=== PATIENT | male | born 1955 | race Caucasian/White ===

== ENCOUNTER 2020-05-31 07:45 | Outpatient (REF) | payer MEDICARE, OTHER, SELFPAY ==
[2020-05-31 08:38] LABS: MANUAL DIFF FLAG NO
[2020-05-31 08:45] LABS: Basophils Percent Auto 0.5 % (0-2); Eosinophils Absolute Auto 0.1 X10*3/uL (0.0-0.4); Eosinophils Percent Auto 0.8 % (0-4); Hematocrit 48.2 % (42-52); Hemoglobin 15.8 g/dl (14.0-18.0); Imm Gran Abs Auto 0.01 X10*3/uL (0.00-0.03); Imm Gran Pct Auto 0.2 % (0.0-0.4); Lymphocytes Absolute Auto 1.2 X10*3/uL (1.2-4.9); Lymphocytes Percent Auto 18.6 % (20-40); Mean Corpuscular HGB Conc 32.8 g/dl (31.0-36.0); Mean Corpuscular Hemoglobin 28.8 pg (27.0-33.0); Mean Corpuscular Volume 87.8 fL (80-98); Mean Platelet Volume 10.5 fL (9.4-12.4); Monocytes Absolute Auto 0.6 X10*3/uL (0.1-1.2); Neutrophils Absolute Auto 4.7 X10*3/uL (2.0-8.3); Neutrophils Percent Auto 70.9 % (45-73); Platelet Count 180 X10*3/uL (160-400); Red Blood Count 5.49 X10*6/uL (4.60-5.80); Red Cell Distribution Width 12.8 % (11.0-16.0); White Blood Count 6.6 X10*3/uL (4.8-10.8)
[2020-05-31 09:16] LABS: Alanine Aminotransferase 25 U/L (0-40); Albumin Level 4.4 g/dL (3.5-5.0); Alkaline Phosphatase 65 U/L (39-117); Anion Gap 11 (12-20); Aspartate Amino Transferase 22 U/L (5-37); Bilirubin Total 1.3 mg/dL (0.0-1.0); Blood Urea Nitrogen 20 mg/dL (9-16); Calcium 8.8 mg/dL (8.4-10.2); Carbon Dioxide 29 mmol/L (22-29); Chloride 103 mmol/L (96-108); Cholesterol 172 mg/dL; Estimated Glomerular Filt Rate > 60; Glucose Random 104 mg/dL (60-115); HDL Cholesterol 53 mg/dL; LDL Cholesterol Calculated 93 mg/dl; Potassium 4.4 mmol/L (3.3-5.1); Sodium 139 mmol/L (135-145); Total Protein 6.7 g/dL (6.5-8.0); Triglycerides 132 mg/dL
[2020-05-31 09:24] LABS: Prostate Specific Antigen 0.53 ng/mL (<0.05-4.0)
== END 2020-05-31 07:46 | disposition home or self-care (01) ==
LOC: HO.LAB 07:45
PROVIDERS: PCP Internal Medicine; Visit Provider Internal Medicine
DX: I10 Essential (primary) hypertension (principal); Z12.5 Encounter for screening for malignant neoplasm of prostate
CPT/HCPCS: 36415; 80053; 80061; 84153; 85025

== ENCOUNTER → 2020-08-19 08:49 | Outpatient (BNVA) | payer MEDICARE, OTHER, SELFPAY | PROVIDERS: PCP Internal Medicine; Visit Provider Orthopaedic Surgery | DX: M65.321 Trigger finger, right index finger (principal); M65.331 Trigger finger, right middle finger; M65.341 Trigger finger, right ring finger; M65.351 Trigger finger, right little finger; M65.322 Trigger finger, left index finger; M65.332 Trigger finger, left middle finger; M65.342 Trigger finger, left ring finger; M65.352 Trigger finger, left little finger | CPT/HCPCS: 20550; 99202; J1100 ==

== ENCOUNTER → 2020-10-12 10:44 | Outpatient (BNVA) | payer MEDICARE, OTHER, SELFPAY | PROVIDERS: Visit Provider Orthopaedic Surgery | DX: M65.352 Trigger finger, left little finger (principal); M65.342 Trigger finger, left ring finger; M65.332 Trigger finger, left middle finger; M65.322 Trigger finger, left index finger; M65.351 Trigger finger, right little finger; M65.341 Trigger finger, right ring finger; M65.331 Trigger finger, right middle finger; M65.321 Trigger finger, right index finger | CPT/HCPCS: 99212 ==

== ENCOUNTER 2020-11-10 10:23 | Day surgery (SDC) | payer MEDICARE, OTHER, SELFPAY ==
--- NOTE | 2020-11-10 10:13 | W.PM.OPN ---
Operative Note Operative Note Date of Service: 11/10/20 Narrative: Operative Note Preop diagnosis: 1. Left middle finger Trigger finger 2. Left ring finger trigger finger Postop diagnosis: Same Procedure: 1. Left middle finger A1 anand release 2. Left ring finger A1 anand release Surgeon: Sara Seals MD Anesthesia: local block using 1% lidocaine with epinephrine Findings: No locking or catching after A1 anand release EBL: Less than 5 mL Tourniquet time: None Specimens: None Complications: None Disposition: Brought to recovery room in stable condition Plan: Follow-up for 7-10 days for wound check and suture removal Indications: The patient is 64 years old, with left middle finger and left ring finger trigger fingers that have been unresponsive to nonoperative management. The risks and benefits of operative treatment including but not limited to risk of damage to blood vessels, nerves, tendons, infection, persistent pain, persistent symptoms, recurrence or possible need for additional surgery were discussed with the patient and the patient wishes to proceed with surgery. Procedure: Once consent was obtained a local block was performed in the preop area using a combination of 1% lidocaine with epinephrine. The patient was then brought back to the operating suite and placed on the operative table in supine position. A tourniquet was applied to the proximal aspect of the left upper extremity and the limb was prepped and draped in a standard surgical fashion. Once assured that we had a good block, a 1.5 cm oblique incision was made centered over the A1 anand of the left middle finger . The incision was made through the skin to the subcutaneous tissues using a #15 blade. Careful dissection was made down to the level of the A1 anand using tenotomy scissors, with care being taken to protect the nearby neurovascular structures. A longitudinal incision was made in the A1 anand 1st using a #15 blade, then using tenotomy scissors under direct visualization. The A1 anand was noted to be thickened. Following our A1 anand release, we no longer saw any locking or catching of the digit with flexion and extension. Once assured that we had a good block, a 1.5 cm oblique incision was made centered over the A1 anand of the left ring finger . The incision was made through the skin to the subcutaneous tissues using a #15 blade. Careful dissection was made down to the level of the A1 anand using tenotomy scissors, with care being taken to protect the nearby neurovascular structures. A longitudinal incision was made in the A1 anand 1st using a #15 blade, then using tenotomy scissors under direct visualization. The A1 anand was noted to be thickened. Following our A1 anand release, we no longer saw any locking or catching of the digit with flexion and extension. Once satisfied with our A1 anand release the wound was copiously irrigated with normal saline and hemostasis was obtained with a brief period of local pressure. The skin edges were reapproximated with some 5.0 nylon suture material and a sterile dressing was applied. The patient appears to have tolerated the procedure well and with no complications. All digits were well vascularized at the conclusion of the case.
[2020-11-10 10:42] VITALS: BP 136/76; PULSE 70; RESP 16; TEMP 36.7; O2SAT 97; BMI 29.1
--- NOTE | 2020-11-10 11:48 | MHC.SHP ---
Pre-Procedural Eval Section A Date of Service: 11/10/20 The patient is an INPATIENT: No Changes since office visit: No Cold of Flu in the past 2 weeks, No New Medical Problems, No Changes in Medication and No Patient answered all questions The History & Physical has been completed within 30 days and I have reviewed it.: Yes Section B Chief Complaint: trigger fingers Allergies: Allergies Allergy/AdvReac Type Severity Reaction Status Date / Time No Known Allergies Allergy Verified 08/19/20 08:59 Plan I have reviewed the history and physical and performed a pertinent physical examination on my patient. No changes have occurred unless specified.
[2020-11-10 12:45] VITALS: BP 117/67; PULSE 70; RESP 18; TEMP 36.8; O2SAT 98
== END 2020-11-10 13:05 | disposition home or self-care (01) ==
PROVIDERS: PCP Internal Medicine; Visit Provider Orthopaedic Surgery
PROC: (CPT 26055; principal; 2020-11-10 11:10)
DX: M65.332 Trigger finger, left middle finger (principal); M65.342 Trigger finger, left ring finger; I10 Essential (primary) hypertension
CPT/HCPCS: 26055 ×2

== ENCOUNTER → 2020-11-23 08:24 | Outpatient (BNVA) | payer MEDICARE, OTHER, SELFPAY | PROVIDERS: PCP Internal Medicine; Visit Provider Orthopaedic Surgery | DX: Z48.89 Encounter for other specified surgical aftercare (principal); Z87.39 Personal history of other diseases of the musculoskeletal system and connective tissue | CPT/HCPCS: 99212 ==

== ENCOUNTER 2021-12-12 07:25 | Outpatient (REF) | payer MEDICARE, OTHER, SELFPAY ==
[2021-12-12 07:30] LABS: MANUAL DIFF FLAG NO
[2021-12-12 07:50] LABS: Basophils Absolute Auto 0.1 X10*3/uL (0.0-0.2); Basophils Percent Auto 0.8 % (0-2); Eosinophils Absolute Auto 0.1 X10*3/uL (0.0-0.4); Eosinophils Percent Auto 1.1 % (0-4); Hematocrit 47.6 % (42.0-52.0); Hemoglobin 15.6 g/dl (14.0-18.0); Imm Gran Abs Auto 0.02 X10*3/uL (0.00-0.03); Imm Gran Pct Auto 0.3 % (0.0-0.4); Lymphocytes Percent Auto 30.8 % (20-40); Mean Corpuscular HGB Conc 32.8 g/dl (31.0-36.0); Mean Corpuscular Volume 85.5 fL (80.0-98.0); Mean Platelet Volume 9.7 fL (9.4-12.4); Monocytes Absolute Auto 0.6 X10*3/uL (0.1-1.2); Monocytes Percent Auto 8.5 % (2-11); Neutrophils Absolute Auto 3.8 x10*3/uL (2.0-8.3); Neutrophils Percent Auto 58.5 % (45-73); Platelet Count 193 X10*3/uL (160-400); Red Blood Count 5.57 X10*6/uL (4.60-5.80); White Blood Count 6.6 X10*3/uL (4.8-10.8)
[2021-12-12 08:13] LABS: Alanine Aminotransferase 27 U/L (0-40); Albumin Level 4.4 g/dL (3.5-5.0); Alkaline Phosphatase 67 U/L (39-117); Anion Gap 16 (12-20); Aspartate Amino Transferase 28 U/L (5-37); Bilirubin Total 0.9 mg/dL (0.0-1.0); Blood Urea Nitrogen 17 mg/dL (9-16); Calcium 8.9 mg/dL (8.4-10.2); Carbon Dioxide 27 mmol/L (22-29); Chloride 103 mmol/L (96-108); Cholesterol 166 mg/dL; Estimated Glomerular Filt Rate > 60; Glucose Random 115 mg/dL (60-115); HDL Cholesterol 53 mg/dL; LDL Cholesterol Calculated 98 mg/dl; Potassium 4.5 mmol/L (3.3-5.1); Sodium 141 mmol/L (135-145); Total Protein 6.7 g/dL (6.5-8.0); Triglycerides 79 mg/dL
[2021-12-12 08:34] LABS: Prostate Specific Antigen 0.93 ng/mL (<0.05-4.0); Thyroid Stimulating Hormone 1.87 uIU/mL (0.32-4.0)
== END 2021-12-12 07:26 | disposition home or self-care (01) ==
LOC: HO.LAB 07:25
PROVIDERS: PCP Internal Medicine; Visit Provider Internal Medicine
DX: Z12.5 Encounter for screening for malignant neoplasm of prostate (principal); I10 Essential (primary) hypertension; E78.5 Hyperlipidemia, unspecified
CPT/HCPCS: 36415; 80053; 80061; 84153; 84443; 85025

== ENCOUNTER 2022-04-18 12:03 | Outpatient (REF) | payer MEDICARE, OTHER, SELFPAY ==
--- NOTE | 2022-04-18 09:30 | EMG_ITS ---
Please see scanned EMG / Nerve Conduction Report. MTDD
== END 2022-04-18 12:04 | disposition home or self-care (01) ==
LOC: HO.NEURO 12:03
PROVIDERS: PCP Internal Medicine; Visit Provider Internal Medicine
DX: G56.12 Other lesions of median nerve, left upper limb (principal)
CPT/HCPCS: 95885; 95910

== ENCOUNTER 2022-08-07 14:04 | Outpatient (REF) | payer MEDICARE, SELFPAY ==
--- NOTE | ~2022-08-07 | US_ITS ---
EXAMINATION: NONINVASIVE ASSESSMENT OF THE ARTERIES OF BOTH UPPER EXTREMITIES Enrique Young MD CLINICAL INFORMATION: TIA. TECHNIQUE: Duplex Doppler of the upper extremities was performed. Velocity measurements and color flow Doppler imaging were performed in the proximal, mid and distal subclavian arteries, the axillary arteries, the proximal, mid and distal brachial arteries as well as the radial and ulnar arteries. COMPARISON: None available. FINDINGS: RIGHT ARM: Triphasic waveforms are noted throughout. Minimal if any plaque is seen. Velocities in cm per second are as follows: Subclavian proximal: 314 Subclavian mid: 112 Subclavian distal: 137 Axillary artery: 97 Brachial artery proximal: 148 Brachial artery mid: 120 Brachial artery distal: 117 Radial artery mid: 144 Ulnar artery mid: 127 LEFT LEG: Triphasic waveforms are noted throughout. Minimal if any plaque is seen. Velocities in cm per second are as follows: Subclavian proximal: 246 Subclavian mid: 123 Subclavian distal: 118 Axillary artery: 119 Brachial artery proximal: 123 Brachial artery mid: 1.120 Brachial artery distal: 121 Radial artery mid: 97 Ulnar artery and the: 103 US/US arterial duplex UE BI IMPRESSION: No evidence of hemodynamically significant upper extremity arterial disease. There are elevated velocities seen in the very proximal subclavian arteries of questionable significance as significant plaque is noted and normal triphasic flow noted throughout both upper extremities.
--- NOTE | ~2022-08-07 | US_ITS ---
EXAMINATION: US EXTRACRANIAL CAROTID DUPLEX, BILATERAL CLINICAL INFORMATION: Transient ischemic attack. COMPARISON: None available. TECHNIQUE: Real-time ultrasound and Doppler techniques (integrating B-mode 2-D vascular images, Doppler spectral analysis and color-flow Doppler imaging) were utilized to interrogate the extracranial carotid arteries, the vertebral arteries and proximal subclavian arteries bilaterally. The degree of stenosis is determined by criteria similar to NASCET. FINDINGS: Right Side: 1. There is no atherosclerotic plaque seen in the bifurcation/proximal ICA region. 2. The common carotid artery PSV proximally is 139 cm/s and distally 175 cm/s. 3. The proximal internal carotid artery velocities are 91 cm/s systolic and 14 cm/s diastolic. 4. The proximal external carotid artery PSV is 184 cm/s. 5. The vertebral artery shows antegrade flow. 6. The subclavian artery waveforms are normal. Left Side: 1. There is no atherosclerotic plaque seen in the bifurcation/proximal ICA region. 2. The common carotid artery PSV proximally is 205 cm/s and distally 142 cm/s. 3. The proximal internal carotid artery velocities are 113 cm/s systolic and 14 cm/s diastolic. 4. The proximal external carotid artery PSV is 187 cm/s. 5. The vertebral artery shows antegrade flow. 6. The subclavian artery waveforms are normal. US/US carotid duplex BI IMPRESSION: 1. RIGHT: Normal right internal carotid artery without atherosclerotic plaque or hemodynamically significant stenosis. 2. LEFT: Normal left internal carotid artery without atherosclerotic plaque or hemodynamically significant stenosis.
== END 2022-08-07 14:05 | disposition home or self-care (01) ==
LOC: HO.US 14:04
PROVIDERS: Visit Provider Physician Assistant
DX: G45.8 Other transient cerebral ischemic attacks and related syndromes (principal)
CPT/HCPCS: 93880; 93930

== ENCOUNTER 2024-04-21 12:26 | Outpatient (REF) | payer MEDICARE, SELFPAY ==
--- NOTE | ~2024-04-21 | XR_ITS ---
CLINICAL HISTORY: COUGH 2 view chest x-ray Comparison: None Findings: No consolidation or effusion. Bibasilar atelectasis. No pneumothorax. Cardiac silhouette and mediastinal contours within normal limits. Degenerative changes include imaged shoulders, spine, and AC joints. Tendon anchors in bilateral humerus heads. IMPRESSION: No consolidation. This document has been electronically signed by: Vladimir Neville MD on 04/21/2024 23:12:26
--- OUTSIDE RECORDS SUMMARY | 2024-04-21 15:09 | XMS_ITS | Data Portability ---
Author Organization [facility] Service Address [address] [place] [address] Assessment Encounter Date Assessment Date Assessment LastModified by Organization Details LastModified Time 06/27/2022 06/27/2022 [id number] [place] [id number] (QUALITY ASSURANCE SUPERVISOR FINAL) MDM MODERATE MUST MEET 2 OUT OF 3 ELEMENTS: PROBLEMS, DATA OR RISK ELEMENT 1: PROBLEMS ADDRESSED 1 OR MORE CHRONIC ILLNESS WITH EXACERBATION OR 2 OR MORE STABLE CHRONIC ILLNESSES OR 1 UNDIAGNOSED NEW PROBLEM OR 1 ACUTE ILLNESS W/SYMPTOMS OR 1 ACUTE COMPLICATED INJURY ELEMENT 2: DATA MUST MEET 1 OF 3 CATEGORIES CATEGORY 1: REVIEW OF PRIOR EXTERNAL NOTES, REVIEW OF RESULTS, ORDERING OF EACH TEST, ASSESSMENT REQUIRING INDEPENDENT HISTORIAN OR CATEGORY 2: INDEPENDENT INTERPRETATION OF TESTS BY ANOTHER PHYSICIAN OR SPECIALIST OR CATEGORY 3: DISCUSSION OF MGT OR TEST INTERPRETATION W/EXTERNAL PHYSICIAN OR SPECIALIST ELEMENT 3: RISK RISK OF COMPLICATIONS AND/OR MORBIDITY OR MORTALITY OF PATIENT MANAGEMENT PROVIDER MUST THOROUGHLY DOCUMENT EACH ELEMENT THAT IS COVERED Not available 06/27/2022 11:09:14 01/16/2023 01/16/2023 [id number] [place] [id number] (QUALITY ASSURANCE SUPERVISOR FINAL) : MDM LOW MUST MEET 2 OF 3 ELEMENTS: PROBLEMS, DATA OR RISK ELEMENT 1: PROBLEMS ADDRESSED (LOW): 2 OR MORE SELF-LIMITED OR MINOR PROBLEMS OR 1 STABLE CHRONIC ILLNESS OR 1 ACUTE UNCOMPLICATED ILLNESS OR INJURY ELEMENT 2: DATA TO BE REVISED AND ANALYZED (LOW) MUST MEET 1 OF 2 CATEGORIES: CATEGORY 1. REVIEW OF PRIOR EXTERNAL NOTES/RESULTS, ORDERING OF TEST(S) CATEGORY 2. ASSESSMENT REQUIRING INDEPENDENT HISTORIAN(S) INCLUDE WHO THE HISTORIAN IS AND RELATION TO PT AND WHY PT IS UNABLE TO GIVE COMPLETE HISTORY ELEMENT 3: RISK (LOW) RISK OF COMPLICATIONS AND/OR MORBIDITY OR MORTALITY OF PATIENT MANAGEMENT PROVIDER MUST THOROUGHLY DOCUMENT ALL OF THE ELEMENTS COVERED Not available 01/16/2023 10:46:55 08/02/2023 08/02/2023 Patient presente d to office today for their Medicare Annual Wellness Visit. Education was provided on healthy nutrition, including a diet rich in fruits and vegetables, minimizing simple carbohydrates, salt, and saturated fats. Encouraged regular cardiovascular exercise such as walking at least 30 minutes daily, 5 times per week. Emphasized preventive health measures and educated pt on fall prevention and community-based lifestyle interventions to help reduce health risks and promote healthy living. Not available 07/31/2023 10:35:59 11/25/2023 11/25/2023 [id number] [place] [id number] (QUALITY ASSURANCE SUPERVISOR FINAL) MDM MODERATE MUST MEET 2 OUT OF 3 ELEMENTS: PROBLEMS, DATA OR RISK ELEMENT 1: PROBLEMS ADDRESSED 1 OR MORE CHRONIC ILLNESS WITH EXACERBATION OR 2 OR MORE STABLE CHRONIC ILLNESSES OR 1 UNDIAGNOSED NEW PROBLEM OR 1 ACUTE ILLNESS W/SYMPTOMS OR 1 ACUTE COMPLICATED INJURY ELEMENT 2: DATA MUST MEET 1 OF 3 CATEGORIES CATEGORY 1: REVIEW OF PRIOR EXTERNAL NOTES, REVIEW OF RESULTS, ORDERING OF EACH TEST, ASSESSMENT REQUIRING INDEPENDENT HISTORIAN OR CATEGORY 2: INDEPENDENT INTERPRETATION OF TESTS BY ANOTHER PHYSICIAN OR SPECIALIST OR CATEGORY 3: DISCUSSION OF MGT OR TEST INTERPRETATION W/EXTERNAL PHYSICIAN OR SPECIALIST ELEMENT 3: RISK RISK OF COMPLICATIONS AND/OR MORBIDITY OR MORTALITY OF PATIENT MANAGEMENT PROVIDER MUST THOROUGHLY DOCUMENT EACH ELEMENT THAT IS COVERED Not available 11/25/2023 14:46:16 Plan of Treatment Reminders Order Date Submit Date Provider Last Modified By Organization Details Last Modified Time Details Appointments MEDICARE ANNUAL WELLNESS 2024 09:15A M DR CEDILLO Not available Not available Not available Lab lipid panel, blood 2023 024 [facility], [address] [place] [address], [id number], 11/19/2023 13:16:12 hemoglobi n, gastroint estinal, stool 2023 024 [facility], [address] [place] [address], [id number], 08/02/2023 13:46:04 CBC w/ auto diff 2023 024 [facility], [address] [place] [address], [id number], 11/19/2023 13:08:04 CMP, serum or plasma 2023 024 [facility], [address] [place] [address], [id number], 11/19/2023 13:26:38 vitamin D, 25-hydrox y, total, serum 2023 024 [facility], [address] [place] [address], [address], 08/02/2023 13:46:04 PSA, serum or plasma 2023 024 [facility], [address] [place] [address], [id number], 11/19/2023 12:38:03 CMP, serum or plasma 2022 023 [facility], [address] [place] [address], [id number], 01/16/2023 10:55:06 PSA, serum or plasma 2022 023 [facility], [address] [place] [address], [id number], 01/16/2023 10:55:06 CBC 2022 023 [facility], [address] [place] [address], [id number], 01/16/2023 10:55:06 lipid panel, blood 2022 023 [facility], [address] [place] [address], [id number], 01/16/2023 10:55:06 Referral orthopedi c surgeon referral - he has not gotten xrays yet as ordered, so will need these done please 2022 023 kei De La Cruz MD, [address], [place], [address], 07/04/2022 08:22:15 Procedures None recorded. Surgeries None recorded. Imaging None recorded. Medication Orders azithromy mandy 250 mg tablet 2023 024 [facility]/Pharmacy #2024, [address] [place], [address], 02/14/2024 14:20:28 prednison e 10 mg tablet [address]/Pharmacy #2024, [address] [place], [address], 08/02/2023 13:40:18 lisinopri l 2.5 mg tablet 2022 023 [facility] [address] [place], [address], 01/16/2023 10:48:57 Patient TargetsNo targets recorded. Patient Instructions Encounter Date Encounter Id Patient Instructions Last Modified By Organization Details Last Modified Time 08/02/2023 [id number] Discussed and explained advance directives such as standard forms to the {{patient caregiv er patient and caregiver}}. Face to face discussion lasted for a duration of ___ minutes. Not available 07/31/2023 10:35:59 Reason for Referral Orthopedic Surgeon Referral for Pain of left shoulder joint he has not gotten xrays yet as ordered, so will need these done please Referring Physician: Saleem Cedillo, Internal Medicine, Encounter Date: 06/27/2022 Results Created Date Observation Date Name Description Value Unit Range Abnormal Flag Note LastModifiedBy Organization Detail LastModifiedTime 08/09/1908/07/2022 , trinity newberry id arter y No observ ation record ed. [facility] (Medical Records) [address] [place], [address], 01/16/2023 10:40:46 06/23/08/07/2022 US, duple x, arter ial, upper extre mity, compl ete No observ ation record ed. [facility] (Medical Records) [address] [place] [address], [place], [address], 01/16/2023 10:40:46 Result Notes None recorded. 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 Not Available [facility] 3 17:05:03 Median neuropath y 737343056 Active 2021 Not Available [facility] 3 17:05:04 Paresthes ia of hand 019746661 Active 2022 Not Available [facility] 3 17:05:03 Pain of left shoulder joint 073237630021 79551 Active 2022 Not Available [facility] 3 17:05:03 Subclavia n steal syndrome 03585097 Active 2022 Not Available [facility] 3 17:05:03 Acute otitis media 9289495 Active 2022 Not Available [facility] 3 17:05:03 Acute otitis media 2158366 Active 2022 Not Available [facility] 3 17:05:03 Hemorrhag ic diarrhea 68640779 Active 2023 Saleem Cedillo DO [address] [place] [address], [phone], [facility] 4 14:17:55 Cough 14180317 Active 2024 Saleem Cedillo DO [address] [place] [address], [phone], [facility] 5 10:53:25 Essential hypertens ion 60790189 Active 2017 Not Available [facility] 3 17:05:04 History of male erectile disorder 490226538 Active 2017 Not Available [facility] 3 17:05:04 Polyp of colon 34656939 Active 2017 Not Available [facility] 3 17:05:04 Hyperlipi carrieia 98284679 Active 2017 Not Available [facility] 3 17:05:04 Cervical radiculop athy 09375475 Active 2017 Not Available [facility] 3 17:05:04 Hearing loss 84599434 Active 2017 Not Available [facility] 3 17:05:03 Problem Notes None recorded. Procedures Surgical History Date Name Laterality Status Provider Name and Address Organization Details Recorded Time 12/28/19 15 total knee replacement completed [facility] 11/04/2018 14:27:51 02/25/19 10 re-release of carpal tunnel completed [facility] 11/04/2018 14:26:26 Unlisted procedure shoulder completed [facility] 11/04/2018 14:26:58 arthroscopic debridement of knee joint completed [facility] 11/04/2018 14:29:07 Imaging Results Imaging Date Name Status LastModified by Organiz ation Details LastModified Time 08/07/2022 US, duplex, carotid artery completed [address] (Medical Records) [address] [place] [address], [address], 01/16/2023 10:40:46 08/07/2022 US, duplex, arterial, upper extremity, complete completed [address] (Medical Records) [address] [place], [address], 01/16/2023 10:40:46 Procedure Notes None recorded. Medical Equipment None Reported. Allergies No known drug allergies Medications Name Sig Start Date Stop Date Status Note LastModified by Organization Details LastModified Time amoxicillin 500 mg capsule TAKE 1 CAPSULE BY MOUTH THREE TIMES A DAY FOR 10 DAYS active Not Available Not Available No t Available neomycin-po lymyxin-hyd rocort 3.5 mg/mL-10,00 0 unit/mL-1 % ear solution INSTILL 4 DROPS INTO AFFECTED EAR(S) 3 TIMES A DAY 08/01 completed Not Available Not Available Not Available prednisone 10 mg tablet TAKE 4TABS BY MOUTH DAILY X 3DAYS, THEN 3TABS DAILY X 3DAYS, THEN 2TABS X 3DAYS, THEN 1TAB X 3DAYS active Not Available Not Available No t Available azithromyci n 250 mg tablet TAKE 2 TABLETS (500 MG) BY ORAL ROUTE ONCE DAILY FOR 1 DAY THEN 1 TABLET (250 MG) BY ORAL ROUTE ONCE DAILY FOR 4 DAYS 2024 active Not Available Not Available Not Avai lable hydrocodone 5 mg-acetamin ophen 325 mg tablet 12/21 completed Not Available Not Available Not Available lisinopril 20 mg tablet TAKE 1 TABLET BY MOUTH EVERY DAY 12/21 completed Not Available Not Available Not Available Viagra 50 mg tablet Take 1 tablet every day by oral route as needed. 12/21 completed Not Available Not Available Not Available acetaminoph en 300 mg-codeine 30 mg tablet TAKE 1 TABLET BY MOUTH EVERY 4-6 HOURS NEEDED active Not Available Not Available No t Available ciprofloxac in 500 mg tablet TAKE 1 TABLET BY MOUTH EVERY 12 HOURS FOR 7 DAYS active Not Available Not Available No t Available sildenafil 100 mg tablet Take 1 tablet every day by oral route for 180 days. 2019 active Not Available Not Available Not Avai lable simvastatin 20 mg tablet TAKE 1 TABLET BY MOUTH EVERY DAY active Not Available Not Available No t Available lisinopril 10 mg tablet TAKE 1 TABLET BY MOUTH EVERY DAY 08/01 completed Not Available Not Available Not Available fluticasone propionate 50 mcg/actuati on nasal spray,suspe nsion Coleman 1 spray every day by intranasa l route for 30 days. active Not Available Not Available No t Available lisinopril 2.5 mg tablet TAKE 1 TABLET BY MOUTH EVERY DAY active Not Available Not Available No t Available amoxicillin 875 mg-potassiu m clavulanate 125 mg tablet TAKE 1 TABLET BY MOUTH EVERY 12 HOURS FOR 10 DAYS 08/01 completed Not Available Not Available Not Available GaviLyte-G 236 gram-22.74 gram-6.74 gram-5.86 gram oral solution TAKE 8 OUNCE BY MOUTH DIRECTED 04/27 completed Not Available Not Available Not Available Stendra 100 mg tablet Take 1 tablet by oral route as needed for 30 days. 2023 active Not Available Not Available Not Avai lable Vitals Date Recorded Body height Body mass index (BMI) Body weight Heart rate Oxygen saturation Oxygen saturation in Arterial blood by Pulse oximetry Systolic blood pressure Diastolic blood pressure Provider Name and Address Organization Details Last Updated DateTime 3 173.99 cm 32.2 kg/m2 97907.3 6 g 71 /min 98 % 98 % 114 mm[Hg] 70 mm[Hg] Bernarda Foote [facility] 3 10:38:29 Date Recorded Body height Provider Name an d Address Organization Details Last Updated DateTime 01/16/2023 173.99 cm Sal Cedillo [facility] 01/16/2023 08:22:06 Date Recorded Body height Body mass index (BMI) Body weight Heart rate Oxygen saturation Oxygen saturation in Arterial blood by Pulse oximetry Systolic blood pressure Diastolic blood pressure Provider Name and Address Organization Details Last Updated DateTime 4 173.99 cm 31.2 kg/m2 01903.9 3 g 78 /min 98 % 98 % 126 mm[Hg] 70 mm[Hg] Ame Guardado [facility] 4 13:33:04 Date Recorded Body height Body mass index (BMI) Body weight Heart rate Oxygen saturation Oxygen saturation in Arterial blood by Pulse oximetry Systolic blood pressure Diastolic blood pressure Provider Name and Address Organization Details Last Updated DateTime 4 173.99 cm 32.1 kg/m2 65427.7 7 g 77 /min 96 % 96 % 138 mm[Hg] 72 mm[Hg] Bernarda Foote [facility] 4 14:21:25 Date Recorded Body height Body mass index (BMI) Body weight Heart rate Oxygen saturation Oxygen saturation in Arterial blood by Pulse oximetry Systolic blood pressure Diastolic blood pressure Provider Name and Address Organization Details Last Updated DateTime 4 173.99 cm 31.9 kg/m2 37463.1 7 g 74 /min 99 % 99 % 124 mm[Hg] 78 mm[Hg] Shekhar Riley [facility] 4 13:58:09 Social History Question Answer Notes LastModified by Organizat ion Details LastModified Time Tobacco Smoking Status Never Smoker Not Available [facility] 12/29/2019 03:36:23 What Was The Date Of Your Most Recent Tobacco Screening? 02/14/2024 [email or web address] Information not available 02/14/2024 Do You Or Have You Ever Used Any Other Forms Of Tobacco Or Nicotine? No Information not available 12/22/2021 Sex: Unknown Functional Status None recorded. Mental Status None recorded. Family History Nothing Reported. Medical History No medical history recorded. Immunizations Vaccine Type Date Status Note Provider Nam e and Address Organization Details Recorded Time COVID-19, mRNA, LNP-S, PF, 30 mcg/0.3 mL dose 1 completed Saleem Cedillo DO [address] [place] [address], [phone], [facility] 12/21/2020 09:14:35 COVID-19, mRNA, LNP-S, PF, 30 mcg/0.3 mL dose 1 completed Saleem Cedillo DO [address] [place] [address], [phone], [facility] 12/21/2020 09:14:41 COVID-19, mRNA, LNP-S, PF, 30 mcg/0.3 mL dose 1 completed Saleem Cedillo DO [address] [place] [address], [phone], [facility] 12/21/2020 09:14:47 Influenza, split virus, quadrivalent, preservative 1 completed Saleem Cedillo DO [address] [place] [address], [phone], [facility] 12/21/2020 09:15:06 Influenza, split virus, quadrivalent, preservative 8 [facility] 11/27/2019 10:37:50 Pneumococcal conjugate PCV 13 0 completed Saleem Cedillo DO [address] [place] [address], [phone], [facility] 06/23/2021 09:03:58 COVID-19, mRNA, LNP-S, PF, 100 mcg/0.5mL dose or 50 mcg/0.25mL dose 2 [facility] 08:12:30 Influenza, split virus, quadrivalent, preservative 2 [facility] 12/15/2021 10:31:33 COVID-19, mRNA, LNP-S, PF, 100 mcg/0.5mL dose or 50 mcg/0.25mL dose 2 [facility] 12/15/2021 10:31:44 SARS-COV-2 (COVID-19) vaccine, UNSPECIFIED 3 [facility] 11/30/2022 08:43:03 influenza, unspecified formulation 3 completed Lydia jackson [facility] 11/30/2022 08:43:19 Tdap 9 [facility] 11/27/2019 10:37:50 Influenza, split virus, quadrivalent, preservative 9 [facility]/27/2019 10:37:50 Past Encounters Encounter ID Performer Location Encounter Start Date Encounter Closed Date Diagnosis/Indication Diagnosis SNOMED-CT Code Diagnosis ICD10 Code Diagnosis Note [id number] Adeline Cortes NP, [facility] [address],[place]ina Malin [facility] [place] [place] [address] 07/01/2017 08:59:05 07/01/2017 15:09:07 Essential hypertension 33485601 I10 continue lisinopril , alt. 20 mg with 10 mg check labs in house today Carpal katina reji syndrome 17861524 G56.03 [id number] Adeline Cortes NP, [facility] [address],[place] [address] 11/01/2017 08:47:50 11/01/2017 09:18:50 Hyperlipidemia 26870026 E78.2 Essential hypertension 53668771 I10 continue lisinopril , alt. 20 mg with 10 mg Triggering of digit 2399 75073 M65.30 improved [id number] Adeline Cortes NP, [facility] [address] [facility] [address],[place] [address] 05/07/2018 09:01:19 05/07/2018 09:43:06 Hyperlipidemia 92706204 E78.2 Essential hypertension 68699562 I10 continue lisinopril , alt. 20 mg with 10 mg Screening procedure 2012 5006 Z13.9 Active or passive immunization 374515119 Z23 [id number] Lizbet [facility] [address],[place] [address] 11/05/2018 10:19:14 11/05/2018 11:26:10 Hyperlipidemia 10377613 E78.2 well controlled Essential hypertension 41553343 I10 well controlled Adult heal th examination 303249526 Z00.00 hcp complete Body mass index 30+ - obesity 658264054 Z68.31 [id number] May [facility] [address] [facility] [address],[place] [address] 05/05/2019 09:21:00 05/05/2019 10:06:06 Essential hypertension 42883057 I10 well controlled Hyperlipidemia 03929886 E78.2 well controlled Body mass index 30+ - obesity 393386818 Z68.31 has gained some weight, plans to lose weight with more exercise as the warm weather approaches Screening for malignant neoplasm of prostate 070993841 Z12.5 [id number] GEOVANY CASTREJON [facility] [address] [facility] [address],[place] [address] 06/22/2019 10:22:22 06/22/2019 12:04:03 Dysuria 21124458 R30.9 will start on cipro and set up with urology [id number] GEOVANY CASTREJON [facility] [address] [facility] [address],[place] [address] 07/27/2019 09:20:27 07/27/2019 09:56:20 Fatigue 74057850 R53.83 more so as he has gotten older will check thyroid per patient request and on recommenda tion of nurse he see for cortisone shots Dry skin 83942671 L85.3 on the arms, and wrists Tendinitis 02598879 M77. 9 bilateral wrists [id number] Saleem Cedillo [facility] Internal [address], ite [facility] [address] 11/27/2019 10:23:24 11/27/2019 11:36:16 Essential hypertension 53905976 I10 History of male erectile disorder 960392020 Z87.438 [id number] Saleem Cedillo [address], [place] [address] 06/03/2020 10:04:56 06/03/2020 10:30:11 Essential hypertension 56550513 I10 doing well now on the 10 mg Hyperlipidemia 03438952 E78.5 we have reviewed the lab in detail LDL is 93 HDL is 53 [id number] Saleem Cedillo [address], [place] [address] 12/21/2020 09:09:31 12/21/2020 09:37:46 Essential hypertension 08496907 I10 doing well now on the 10 mg and we will Hyperlipidemia 82910235 E78.5 we have reviewed the lab in detail LDL is 93 HDL is 53 [id number] GEOVANY CASTREJON [facility] [address] [place] [address], [place] [address] 03/07/2021 11:54:08 03/08/2021 15:36:37 Nasal congestion 24025453 R09.81 will increase dose of mucinex from 400 mg every 4 hours to every 3 hours, would be okay Suspected COVID-19 61588 4004 Z20.822 waiting on test results Cough 34022967 R05.1 will fu with anti cough medication if needed Posterior rhinorrhea 758 12295 R09.82 will start on flonase with the post-nasal [id number] Saleem Cedillo [facility] Internal [address],[place] [address] 06/23/2021 08:59:40 06/23/2021 10:03:51 Essential hypertension 38586504 I10 doing well now on the 10 mg and we will continure this Hyperlipidemia 78293958 E78.5 we have reviewed the lab in detail LDL is 93 HDL is 53 [id number] Saleem Cedillo DO [facility] [address],[place] [address] 12/22/2021 08:56:05 12/22/2021 14:40:52 Essential hypertension 95190652 I10 doing well now on the 10 mg and we will continure this Hyperlipidemia 54259365 E78.5 we have reviewed the lab in detail LDL is 93 HDL is 53 Advance care planning 71 4267794 Z71.89 utd done Active or passive immunization 571915144 Z23 patient due for pneu 23 & shingles Median neuropathy 146949 008 G56.12 Cervical radiculopathy 98845246 M54.12 not sure if this is the cause of his left arm numbness we [place] getting a [place] [id number] Saleem Cedillo DO [facility] [address], [place] [address] 04/27/2022 09:38:21 04/27/2022 10:50:18 Paresthesia of hand 093843387 R20.2 deteriorat ing condition now with muscle atrophyuna ble to feel distal fingersdro pping thingsberkeley ed worsening over last several months Pain of le ft shoulder joint 2271897021 7396683 M25.512 worsening even with lying on this at night Essential hypertension 51926349 I10 doing well now on the 10 mg and we will continure this Cervical radiculopathy 18564062 M54.12 not sure if this is the cause of [place] left [place] [id number] Saleem Cedillo [facility] [address] [facility] [address],[place] [address] 06/27/2022 10:28:03 06/27/2022 15:24:41 Essential hypertension 41122317 I10 doing well now on the 10 mg but getting light headed we will have him cut in half and use 5mg and let me know how that works Pain of le ft shoulder joint 7347486219 0874859 M25.512 worsening even with lying on this at night vibratory activity cause the worse painhe has yet to get the xray and mri was originally refused by the insurance until completion of PT which is in august given daily discomfort we will have him see ortho [id number] Saleem Cedillo DO [facility] [address],[facility] [address] 01/16/2023 08:11:40 01/16/2023 10:50:46 Essential hypertension 95067650 I10 doing well now on the 10 mg but getting light headed we will have him cut in half and use 5mg and let me know how that works Hyperlipidemia 21379726 E78.5 we have reviewed the lab in detail LDL is 93 HDL is 53 Median neuropathy 158076 008 G56.12 will use pulse dose of pred when needed. Pain of le ft shoulder joint 9624266327 7361691 M25.512 worsening even with lying on this at night vibratory activity cause the worse painhe has yet to get the xray and mri was originally refused by the insurance until completion of PT which is in august given daily discomfort we will have him see ortho [id number] Saleem Cedillo DO [facility] [address], [place] [address] 08/02/2023 13:24:02 08/02/2023 14:09:55 Adult health examination 548470262 Z00.00 doing well overall his left hand remains numb in the 3 fingers and Screening for cardiovascular system disease [id number] Z13.6 will ask to get some lab Screening for malignant neoplasm of colon [id number] Z12.11 utd w colonoscop y Depression screening 171 [id number] Z13.31 SCREENING NEGATIVE Essential hypertension [id number] I10 doing well now on the 10 mg but getting light headed we will have him cut in half and use 5mg and let me know how that works Cervical radiculopathy [id number] M54.12 pred taper as necess Median neuropathy [id number] G56.12 will use pulse dose of pred when needed. [id number] Saleem Cedillo DO [facility] [address] [facility] [address] [facility] [place] [address] 11/25/2023 14:08:30 11/25/2023 14:55:33 Essential hypertension [id number] I10 doing well now on the 10 mg but getting light headed we will have him cut in half and use 5mg and let me know how that works Hyperlipidemia [id number] E78.5 we have reviewed the lab in detail LDL is 93 HDL is 53 Cervical radiculopathy [id number] M54.12 pred taper as necess [id number] Saleem Cedillo DO [facility] [address] [facility] [address] [facility] [place] [address] 02/14/2024 13:48:50 02/14/2024 14:23:18 Depression screening [id number] Z13.31 SCREENING NEGATIVE Hemorrhagic diarrhea [id number] R19.7 secondary to food poisoning too late for culture on this sat afternoon he is still uncomforta bleand bloody diarrhea has stopped but he is still loose no t eating much but keeping well hydrated Health Concerns Section Related Observation LastModified by Organization Detai ls LastModified Time None Recorded Concern Status LastModified by Organization Details LastModified Time None Recorded Advance Directives Directive None Recorded Payers Encounter Date Sequence Insurance Name Policy Number Policy Morgan Covered Member ID Morgan Member ID Guarantor Name 06/27/2022 1 [employer] (MEDICARE REPLACEMENT HMO) [id number] Saleem Balderas [id number] Saleem Balderas 01/16/2023 1 [employer] (MEDICARE REPLACEMENT HMO) [id number] Saleem Balderas [id number] Slaeem Balderas 08/02/2023 1 [employer] (MEDICARE REPLACEMENT HMO) [id number] Saleem Balderas [id number] Saleem Badleras 11/25/2023 1 [employer] (MEDICARE REPLACEMENT HMO) [id number] Saleem Balderas [id number] Saleem Balderas 02/14/2024 1 [employer] (MEDICARE REPLACEMENT HMO) [id number] Saleem Balderas [id number] Saleem Balderas Notes Date Note Type Note Provider Name and Address Organization Details Recorded Time 3 text/htm l here for rechk and relates that he has been waiting to do PT for his shoulder will start later in monthstates that the prednisone was very helpful and has been feeling somewhat betterrelates otherwise he is feeling goodno cp no sobhas not done the xray yet as was ordered Saleem Cedillo, DO [address] [place], [address], 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 01/16/2023 10:49:37 4 text/htm l Medicare Annual Wellness VisitReported bypatient.Diet and Nutrition:healthy diet Fracture Risk:no history of fractures; no recent explained fracture; no sudden unexplained fractures; no previous musculoskeletal injuries Physical Activity:exercises on a regular basis; recent increase in physical activity; good physical condition Depression Risk:never feels sad, empty, or tearful; no loss of interest in activities; no significant changes in weight; no sleep disturbances or insomnia; no agitation; no loss of energy; no feelings of worthlessness or guilt; no thoughts of suicide; no history of depression; no history of mood disorders Orientation:no disorientation to time; no disorientation to date; no disorientation to place Concentration and Memory:no decreased concentrating ability; no memory lapses or loss; does not forget words Speech/Motor difficulties:no speech difficulties; no difficulty expressing formulated concepts; no difficulty with fine manipulative tasks; no difficulty writing/copying; no slowed reaction time; does not knock things over when trying to pick them up Hearing:no loss of hearing Vision:no vision problems Activities of Daily Living:able to bathe with limited or no assistance; able to contol urination and bowels; able to dress with limited or no assistance; able to feed self with limited or no assistance; able to get out of chair or bed with limited or no assistance; able to groom with limited or no assistance; able to toilet with limited or no assistance Instrumental Activities of Daily Living:able to do house work with limited or no assistance; able to grocery shop with limited or no assistance; able to manage medications with limited or no assistance; able to manage money with limited or no assistance; able to prepare meals with limited or no assistance; able to use the phone with limited or no assistance Falls Risk Assessment:no frequent falls while walking; no fall in the past year; no fall since last visit; no dizziness/vertigo Home Safety:no unsafe john hazzards; no unsafe stairs; no unsafe gas appliances; working smoke/CO detectors; wears protective head gear for biking/high velocity; use of seatbelts; practicing 'safer sex'; no vision or hearing loss while driving; no fire arms; has hand bars in the bathroom/shower; good lighting in the home Saleem Cedillo DO [address] [place] [address], [phone], [facility] 08/02/2023 13:52:14 4 text/htm l Care Management - HypertensionReported bypatient.Self Care:not under emotional stress Severity:symptoms are improving; does not interfere with daily activities Associated Symptoms:no dizziness; no lightheadedness; no chest pain; no shortness of breath; no palpitations; no edema; no calf muscle cramps; no blurred vision; no confusion; no headaches; no fatigue here for rechk and is doingstates that he is doing okno major issuesexcept the numbness in his left arm hand form the neck diseaseexercises and is feeling oktylenol before bed Saleem Cedillo DO [address] [place] [address], [phone], [facility] 11/25/2023 14:55:21 4 text/htm l here for eval of bloody diarrhea he was eating seafood salad from local marketstates began with onset of sore throat the next daythen began 2nd day with onset of intractable watery diarrheaseemed to feel better by 3 days later but exacerbated again over the weekendfelt awful last two dayswent to UC but was turned away and told to go to ER Saleem Cedillo, DO [address] [facility], [place], [address], [facility] 02/14/2024 14:21:27
== END 2024-04-21 12:27 | disposition home or self-care (01) ==
LOC: HO.XRAY 12:26
PROVIDERS: PCP Internal Medicine; Visit Provider Internal Medicine
DX: R05.9 Cough, unspecified (principal)
CPT/HCPCS: 71046

== ENCOUNTER → 2024-04-21 12:32 | Outpatient (BNV) | payer MEDICARE, SELFPAY | PROVIDERS: PCP Internal Medicine; Visit Provider Radiology Neuroradiology | DX: R05.9 Cough, unspecified (principal) | CPT/HCPCS: 71046 ==